=== PATIENT | male | born 1950 | race Caucasian/White ===

== ENCOUNTER → 2016-12-22 | Outpatient (CLI) | payer MEDICARE, OTHER | END | disposition home or self-care (01) | LOC: CFH 09:35 | PROVIDERS: ATTEND Internal Medicine | DX: J98.11 Atelectasis (principal) | CPT/HCPCS: 71020 ==

== ENCOUNTER 2017-01-26 16:58 | Emergency (ER) | payer MEDICARE, OTHER ==
[~2017-01-26] VITALS: Ht 180.3 cm; Wt 153.0 kg
[2017-01-26 17:15] VITALS: BP 122/79
[2017-01-26] MEDS ORDERED: DIPH,PERTUSS(ACELL),TET VAC/PF 0.5 ML IM-VACC ONE ×2 (17:30→17:53)
[2017-01-26] MEDS ORDERED: IBUPROFEN 200 MG TABLET ONE (17:52)
[2017-01-26] MEDS ORDERED: IBUPROFEN 200 MG TABLET PO ONE (18:00)
[2017-01-26 18:14] LABS: BLOOD UREA NITROGEN 27 mg/dL (7-18)
== END 2017-01-26 18:35 | disposition home or self-care (01) ==
LOC: ED 18:29
DX: S50.11XA Contusion of right forearm, initial encounter (principal); W22.8XXA Striking against or struck by other objects, initial encounter; Y93.89 Activity, other specified; Y92.009 Unspecified place in unspecified non-institutional (private) residence as the place of occurrence of the external cause; Y99.9 Unspecified external cause status
CPT/HCPCS: 36415; 80048; 82040; 82550; 90471; 90715

== ENCOUNTER → 2020-06-04 | Outpatient (CLI) | payer MEDICARE, OTHER | END | disposition home or self-care (01) | LOC: RAD 14:13 | PROVIDERS: ATTEND Physician Assistant Medical | DX: N28.1 Cyst of kidney, acquired (principal); Z90.49 Acquired absence of other specified parts of digestive tract; N28.89 Other specified disorders of kidney and ureter; Z20.828 Contact with and (suspected) exposure to other viral communicable diseases | CPT/HCPCS: 76700 ==

== ENCOUNTER → 2020-06-05 | Outpatient (CLI) | payer MEDICARE, OTHER ==
[~2020-06-05] MED LIST: OMNIPAQUE 350 MG/ML, 100ML BOTTLE ONE
[2020-06-05 09:45] LABS: CREATININE 0.96 mg/dL (0.7-1.3)
== END | disposition home or self-care (01) ==
LOC: RAD 08:47
PROVIDERS: ATTEND Physician Assistant Medical
DX: C64.2 Malignant neoplasm of left kidney, except renal pelvis (principal); N28.1 Cyst of kidney, acquired; Z20.828 Contact with and (suspected) exposure to other viral communicable diseases
CPT/HCPCS: 36415; 74170; 82565; Q9967

== ENCOUNTER 2020-06-25 06:18 | Day surgery (SDC) | payer MEDICARE, OTHER ==
[~2020-06-25] VITALS: Ht 180.3 cm; Wt 118.7 kg
[~2020-06-25 06:18] MED LIST changes: +DEXAMETHASONE 4 MG/ML, 1ML ONE; +GABAPENTIN PO; +LIDOCAINE-MPF 1%, 2ML ONE; -OMNIPAQUE 350 MG/ML, 100ML BOTTLE ONE; +ONDA4TAB13 PO; +TAMS-11 PO
[2020-06-25] MEDS ORDERED: TAMS-11 PO (07:17)
[2020-06-25] MEDS ORDERED: GABA-826 PO (07:17)
[2020-06-25 07:18] VITALS: BP 111/76
[2020-06-25] MEDS ORDERED: LACTATED RINGERS 1,000 ML IV SCH (07:30)
[2020-06-25] MEDS ORDERED: CHLORHEXIDINE 15 ML UDC MM ONE (07:30)
[2020-06-25] MEDS ORDERED: FENTANYL PF 250 MCG/5ML ONE (08:21)
[2020-06-25] MEDS ORDERED: LIDOCAINE-MPF 1%, 2ML ONE (08:44)
[2020-06-25] MEDS ORDERED: DEXAMETHASONE 4 MG/ML, 1ML ONE (08:44)
[2020-06-25] MEDS ORDERED: PROPOFOL 50 ML ONE (09:35)
[2020-06-25] MEDS ORDERED: ONDANSETRON 2MG/ML, 2ML ONE (09:35)
[2020-06-25] MEDS ORDERED: SUCCINYLCHOLINE 20 MG/ML, 10ML ONE (09:35)
[2020-06-25] MEDS ORDERED: NEOSTIGMINE 1 MG/ML, 10ML ONE (09:35)
[2020-06-25] MEDS ORDERED: GLYCOPYRROLATE 0.2MG/1ML, 5ML ONE (09:35)
[2020-06-25] MEDS ORDERED: PROPOFOL 10 MG/ML, 20ML ONE (09:35)
[2020-06-25] MEDS ORDERED: CEFAZOLIN 1,000 MG ONE (09:35)
[2020-06-25] MEDS ORDERED: ROCURONIUM 10MG/ML,5ML ONE (09:35)
[2020-06-25] MEDS ORDERED: OMNIPAQUE 350 MG/ML, 50 ML BOTTLE ONE (09:42)
[2020-06-25] MEDS ORDERED: hydrALAzine 20 MG/ML, 1ML IV PRN (10:00)
[2020-06-25] MEDS ORDERED: EPHEDRINE 50 MG/ML, 1ML IVPush PRN (10:00)
[2020-06-25] MEDS ORDERED: FENTANYL PF 100 MCG/2ML IV PRN (10:00)
[2020-06-25] MEDS ORDERED: HYDROmorphone 1 MG/ML, 1ML INJ IVPush PRN (10:00)
[2020-06-25] MEDS ORDERED: METHOCARBAMOL 1,000 MG in DEXTROSE 5% 100 ML IV PRN (10:00)
[2020-06-25] MEDS ORDERED: OXYcodone 5 MG/5 ML ORAL.SOL UDC PO PRN (10:00)
[2020-06-25] MEDS ORDERED: LABETALOL 5MG/ML, 20ML IV PRN (10:00)
[2020-06-25] MEDS ORDERED: MEPERIDINE/PF 25MG/0.5ML IVPush PRN (10:00)
[2020-06-25] MEDS ORDERED: KETOROLAC 30 MG/1 ML IV PRN (10:00)
[2020-06-25] MEDS ORDERED: ACETAMINOPHEN 325 MG TABLET PO PRN (10:00)
[2020-06-25] MEDS ORDERED: ONDANSETRON 2MG/ML, 2ML IVPush PRN (10:00)
[2020-06-25] MEDS ORDERED: PROMETHAZINE 25 MG/ML, 1ML IVPush PRN (10:00)
[2020-06-25] MEDS ORDERED: LORazepam 2 MG/ML, 1ML IVPush PRN (10:00)
[2020-06-25 10:27] LABS: ALANINE AMINOTRANSFERASE 527 U/L (12-78); ALBUMIN 3.3 g/dL (3.4-5.0); ANION GAP 9 mmol/L (5-15); CHLORIDE 110 mmol/L (98-107)
[2020-06-25 10:41] LABS: ALKALINE PHOSPHATASE 1224 U/L (45-117); BILIRUBIN,TOTAL 8.5 mg/dL (0.2-1.0); TOTAL PROTEIN 7.1 g/dL (6.4-8.2)
[2020-06-25] MEDS ORDERED: OMNIPAQUE 350 MG/ML, 100ML BOTTLE ONE (10:58)
== END 2020-06-25 12:00 | disposition home or self-care (01) ==
LOC: OUT 06:18
PROVIDERS: ATTEND Internal Medicine Gastroenterology
DX: K83.1 Obstruction of bile duct (principal); C25.0 Malignant neoplasm of head of pancreas; K44.9 Diaphragmatic hernia without obstruction or gangrene; K31.89 Other diseases of stomach and duodenum; Z20.828 Contact with and (suspected) exposure to other viral communicable diseases; Z79.899 Other long term (current) drug therapy
CPT/HCPCS: 36415; 43239; 43242; 43274; 74170; 74328; 80053; 87635; 88172; 88173; 88305; 88307; C1894; C2625; J0330; J0690; J1100; J2405; J2704; J2710; J3010; J7120; Q9967

== ENCOUNTER 2020-06-29 10:22 | Emergency (ER) | payer MEDICARE, OTHER ==
[~2020-06-29] VITALS: Ht 180.3 cm; Wt 118.3 kg
[~2020-06-29 10:22] MED LIST changes: -DEXAMETHASONE 4 MG/ML, 1ML ONE; +GABA-826 PO; -LIDOCAINE-MPF 1%, 2ML ONE
--- NOTE | 2020-06-29 10:55 | NUR ---
DR. HINOJOSA AND JENIFER HIRSCH AT BEDSIDE. PT C/O COMPLAINING OF INABILITY TO EAT FOLLOWING PANCREATIC STENT PLACEMENT 06/25. PT. STATES HE WAS TOLD BY DR. SILVER TO COME TO THE ED. CONNECTED TO MONITORS. ACCOMPANIED BY . VSS. ORTIZ. PT. STATES NO NEEDS AT THIS TIME
--- NOTE | 2020-06-29 11:27 | NUR ---
LAB AT BEDSIDE. UNABLE TO OBTAIN LABS. WILL REATTEMPT
--- NOTE | 2020-06-29 11:29 | NUR ---
PT. RESTING ON GURNEY. AT BEDSIDE. UPDATED ON POC. VSS. NAD.
--- NOTE | 2020-06-29 12:01 | NUR ---
PT BACK IN ROOM FOLLOWING ESOPHAGRAM. LAB CONTACTED FOR 2ND ATTEMPT
--- NOTE | 2020-06-29 12:06 | NUR ---
LAB AT BEDSIDE
[2020-06-29 12:19] LABS: BASOPHILS % (AUTO) 1 % (0-1); EOSINOPHILS % (AUTO) 4 % (1-7); LYMPHOCYTES % (AUTO) 7 % (22-44); MEAN CORPUSCULAR HEMOGLOBIN 29.2 pg (27.5-34.5); MEAN PLATELET VOLUME 11.9 fL (7.4-10.4); MONOCYTES % (AUTO) 9 % (2-9); NEUTROPHILS % (AUTO) 80 % (42-75); PLATELET COUNT 171 x10^3/uL (130-400); RED BLOOD COUNT 4.15 x10^6/uL (4.38-5.82)
[2020-06-29 12:25] LABS: MD NO
--- NOTE | 2020-06-29 12:26 | NUR ---
PT RESTING ON GURNEY. AWAITING LAB AND ESOPHAGRAM RESULTS. VSS. NAD. WILL CONTINUE TO MONITOR
[2020-06-29 12:32] LABS: ALANINE AMINOTRANSFERASE 177 U/L (12-78); ALBUMIN 3.1 g/dL (3.4-5.0); ANION GAP 6 mmol/L (5-15); CHLORIDE 107 mmol/L (98-107); CREATININE 0.84 mg/dL (0.7-1.3)
[2020-06-29 12:35] LABS: ALKALINE PHOSPHATASE 688 U/L (45-117); BILIRUBIN,TOTAL 3.8 mg/dL (0.2-1.0); TOTAL PROTEIN 7.1 g/dL (6.4-8.2)
[2020-06-29] MEDS ORDERED: MAALOX/HYOSCYAMINE/LIDOCAINE 45 ML BTL PO ONE (13:00)
[2020-06-29] MEDS ORDERED: MAALOX/HYOSCYAMINE/LIDOCAINE 45 ML BTL ONE (13:34)
[2020-06-29 13:36] VITALS: BP 132/78
--- NOTE | 2020-06-29 13:36 | NUR ---
RECEIVED REPORT FROM GREG. PT UPRIGHT ON GURNEY AWAKE & COMFORTABLE AT REST, RESPONDS APPROP TO STAFF, NAD, NO NEEDS AT THIS TIME, AT BS, CALL LIGHT WITHIN REACH, DR HINOJOSA AT BS TO UPDATE PT ON POC.
== END 2020-06-29 14:43 | disposition home or self-care (01) ==
LOC: ED 12:35
DX: K29.00 Acute gastritis without bleeding (principal); C25.9 Malignant neoplasm of pancreas, unspecified; Z90.49 Acquired absence of other specified parts of digestive tract
CPT/HCPCS: 36415; 74220; 80053; 83690; 85025; 99285

== ENCOUNTER → 2020-07-14 | Outpatient (CLI) | payer MEDICARE, OTHER | END | disposition home or self-care (01) | LOC: PETCFH 08:33 | PROVIDERS: ATTEND Surgery | DX: C25.0 Malignant neoplasm of head of pancreas (principal); K57.30 Diverticulosis of large intestine without perforation or abscess without bleeding; I25.10 Atherosclerotic heart disease of native coronary artery without angina pectoris; E04.1 Nontoxic single thyroid nodule; N28.89 Other specified disorders of kidney and ureter | CPT/HCPCS: 78815; A9552 ==

== ENCOUNTER → 2020-07-15 | Outpatient (CLI) | payer MEDICARE, OTHER ==
[~2020-07-15] MED LIST changes: +OMNIPAQUE 350 MG/ML, 100ML BOTTLE ONE
== END | disposition home or self-care (01) ==
LOC: RAD 10:48
PROVIDERS: ATTEND Surgery
DX: C25.0 Malignant neoplasm of head of pancreas (principal); K86.89 Other specified diseases of pancreas
CPT/HCPCS: 74170; Q9967

== ENCOUNTER 2020-07-24 13:35 | Outpatient (CLI) | payer MEDICARE, OTHER ==
[~2020-07-24 13:35] MED LIST changes: -OMNIPAQUE 350 MG/ML, 100ML BOTTLE ONE
[2020-07-24] MEDS ORDERED: OXYC5TAB2 PO (14:18)
== END 2020-07-24 23:59 | disposition home or self-care (01) ==
LOC: STAR 13:35
PROVIDERS: ATTEND Surgery
DX: Z20.828 Contact with and (suspected) exposure to other viral communicable diseases (principal); C78.89 Secondary malignant neoplasm of other digestive organs
CPT/HCPCS: 87635

== ENCOUNTER 2020-07-29 07:50 | Day surgery (SDC) | payer MEDICARE, OTHER ==
[~2020-07-29] VITALS: Ht 172.7 cm; Wt 118.0 kg
[~2020-07-29 07:50] MED LIST changes: +BUPIVACAINE/PF 0.5% ONE; +EPINEPHRINE 1 MG/ML, 1ML ONE; +HEPARIN 1,000 UNITS/ML, 10ML ONE; +HEPARIN 5,000 UNITS/ML, 1ML ONE; +LIDOCAINE/PF 1%, 30ML ONE; +OXYC5TAB2 PO
[2020-07-29 08:24] VITALS: BP 135/89
[2020-07-29] MEDS ORDERED: CHLORHEXIDINE 15 ML UDC ONE (08:28)
[2020-07-29] MEDS ORDERED: CHLORHEXIDINE 15 ML UDC MM ONE (08:30)
[2020-07-29] MEDS ORDERED: LACTATED RINGERS 1,000 ML IV SCH (08:30)
[2020-07-29 09:04] LABS: ALANINE AMINOTRANSFERASE 22 U/L (12-78); ALBUMIN 3.5 g/dL (3.4-5.0); ANION GAP 8 mmol/L (5-15); CALCIUM 9.1 mg/dL (8.5-10.1); CHLORIDE 113 mmol/L (98-107); CREATININE 0.85 mg/dL (0.7-1.3)
[2020-07-29 09:06] LABS: ALKALINE PHOSPHATASE 105 U/L (45-117); TOTAL PROTEIN 6.7 g/dL (6.4-8.2)
[2020-07-29 09:09] LABS: BASOPHILS % (AUTO) 1 % (0-1); EOSINOPHILS % (AUTO) 6 % (1-7); LYMPHOCYTES % (AUTO) 15 % (22-44); MEAN CORPUSCULAR HEMOGLOBIN 29.7 pg (27.5-34.5); MEAN CORPUSCULAR HGB CONC 33.7 g/dL (33.2-36.2); MEAN PLATELET VOLUME 10.9 fL (7.4-10.4); MONOCYTES % (AUTO) 9 % (2-9); NEUTROPHILS % (AUTO) 69 % (42-75); PLATELET COUNT 137 x10^3/uL (130-400); RED BLOOD COUNT 4.54 x10^6/uL (4.38-5.82); RED CELL DISTRIBUTION WIDTH 14.7 % (9.4-14.8)
[2020-07-29 09:14] LABS: MD NO
[2020-07-29] MEDS ORDERED: FENTANYL PF 250 MCG/5ML ONE (10:39)
[2020-07-29] MEDS ORDERED: CEFAZOLIN 1,000 MG ONE ×2 (10:42)
[2020-07-29] MEDS ORDERED: PROPOFOL 10 MG/ML, 20ML ONE (10:42)
[2020-07-29] MEDS ORDERED: EPHEDRINE 50 MG/ML, 1ML ONE ×2 (10:54→11:14)
[2020-07-29] MEDS ORDERED: GLYCOPYRROLATE 0.2MG/1ML, 5ML ONE (10:54)
[2020-07-29] MEDS ORDERED: PHENYLEPHRINE 10 MG/ML ONE (10:54)
[2020-07-29] MEDS ORDERED: ONDANSETRON 2MG/ML, 2ML IVPush PRN (11:00)
[2020-07-29] MEDS ORDERED: LABETALOL 5MG/ML, 20ML IV PRN (11:00)
[2020-07-29] MEDS ORDERED: hydrALAzine 20 MG/ML, 1ML IV PRN (11:00)
[2020-07-29] MEDS ORDERED: FENTANYL PF 100 MCG/2ML IV PRN (11:00)
[2020-07-29] MEDS ORDERED: MEPERIDINE/PF 25MG/0.5ML IVPush PRN (11:00)
[2020-07-29] MEDS ORDERED: HYDROmorphone 1 MG/ML, 1ML INJ IVPush PRN (11:00)
[2020-07-29] MEDS ORDERED: morphine SULFATE 10 MG/ML, 1ML IVPush PRN (11:00)
[2020-07-29] MEDS ORDERED: OXYcodone 5 MG/5 ML ORAL.SOL UDC PO PRN (11:00)
== END 2020-07-29 12:50 | disposition home or self-care (01) ==
LOC: OUT 07:50
PROVIDERS: ATTEND Surgery
DX: C25.0 Malignant neoplasm of head of pancreas (principal); K83.1 Obstruction of bile duct; Z79.891 Long term (current) use of opiate analgesic; Z79.899 Other long term (current) drug therapy
CPT/HCPCS: 36415; 36561; 77001; 80053; 85025; 86301; C1788; J0171; J0690; J1644; J2370; J2704; J3010; J7120; 76000

== ENCOUNTER 2020-08-17 10:25 | Emergency (ER) | payer MEDICARE, OTHER ==
[~2020-08-17] VITALS: Ht 172.7 cm; Wt 115.0 kg
[~2020-08-17 10:25] MED LIST changes: -BUPIVACAINE/PF 0.5% ONE; -EPINEPHRINE 1 MG/ML, 1ML ONE; -HEPARIN 1,000 UNITS/ML, 10ML ONE; -HEPARIN 5,000 UNITS/ML, 1ML ONE; -LIDOCAINE/PF 1%, 30ML ONE
[2020-08-17] MEDS ORDERED: CREON PO (10:39)
[2020-08-17] MEDS ORDERED: ONDA4TAB7 PO (10:39)
--- NOTE | 2020-08-17 10:39 | NUR ---
TASK RN NOTE: BIB [facility] FOR DECREASE IN FOOD INTAKE X3 DAYS, DECREASE IN URINE AND BOWEL MOVEMENTS X3 DAYS. "IT HOLGUIN WHEN I PEE AND IT ONLY DRIBBLES." LAST BM TODAY, BUT PT REPORTS SMALL. CURRENT DX OF PANCREATIC CA. PT RECIEVES CHEMO EVERY TWO WEEKS, TOMORROW WILL BE HIS SECOND TREATMENT. PT CHANGED INTO GOWN, NAD NOTED AT THIS TIME. BP AND SPO2 MONITORING IN PLACE. AT BEDSIDE. SIDE RAIL UP, CALL LIGHT IN REACH. REPORT TO ALIDA MCGOVERN.
--- NOTE | 2020-08-17 11:21 | NUR ---
C/O BURNING W/ URINATION, VOIDING SMALL AMOUNTS X 2 DAYS. AVERAGE WATER INTAKE. PT REPORTS DIARRHEA FOR "ABOUT 3 WEEKS", HAS BEEN TAKING IMMODIUM (LAST DOSE YESTERDAY). LAST CHEMO TX "2 WEEKS AGO TOMORROW", NEXT APPT IS TOMORROW. REPORTS PAIN IN PANCREASE AREA; PAIN W/ BM'S. SPOUSE IN ROOM AND ASSISTING W/ HX. PT NOTIFIED OF NEED FOR URINE SPECIMEN.
[2020-08-17] MEDS ORDERED: LOPE-114 PO (11:29)
--- NOTE | 2020-08-17 11:29 | NUR ---
TO RADIOLOGY PER MARLENI
--- NOTE | 2020-08-17 11:47 | NUR ---
BLADDER SCANNER TO ROOM. PT STATES URGE TO VOID. URINAL IN PT'S HAND
--- NOTE | 2020-08-17 12:02 | NUR ---
PT VOIDED 30ML CLOUDY NURIA URINE. BLADDER SCANNED POST-VOID: NO URINE DETECTED W/ MULTIPLE SCANS.
[2020-08-17] MEDS ORDERED: PROC10TA2 PO (12:14)
[2020-08-17] MEDS ORDERED: LIDO30CR TP (12:14)
[2020-08-17] MEDS ORDERED: ONDA8TAB18 PO (12:14)
[2020-08-17] MEDS ORDERED: LIPA1CAP61 PO (12:14)
[2020-08-17 12:33] LABS: MICROSCOPIC INDICATED
--- NOTE | 2020-08-17 13:12 | NUR ---
RESTING QUIETLY ON GURNEY, AWAITING DETERMINATION AND POC. SPOUSE IN ROOM. PT REPORTS HE VOIDED AGAIN: 40ML NURIA URINE IN URINAL.
[2020-08-17 14:00] VITALS: BP 107/59
[2020-08-17] MEDS ORDERED: CEFTRIAXONE 1,000 MG IM ONE (14:00)
[2020-08-17] MEDS ORDERED: MAGNESIUM CITRATE 300ML ORAL SOL PO ONE (14:00)
[2020-08-17] MEDS ORDERED: CEFTRIAXONE 1,000 MG ONE (14:14)
[2020-08-17] MEDS ORDERED: LIDOCAINE-MPF 1%, 2ML ONE (14:14)
--- NOTE | 2020-08-17 14:21 | NUR ---
ROCEPHIN GIVEN PER EMAR.
[2020-08-17] MEDS ORDERED: MAGNESIUM CITRATE 300ML ORAL SOL ONE (14:38)
== END 2020-08-17 14:49 | disposition home or self-care (01) ==
LOC: ED 13:02
DX: N30.00 Acute cystitis without hematuria (principal); K59.00 Constipation, unspecified; R33.9 Retention of urine, unspecified; Z85.07 Personal history of malignant neoplasm of pancreas
CPT/HCPCS: 74021; 81001; 87077; 87086; 96372; 99285; J0696; 87186

== ENCOUNTER → 2020-10-12 | Outpatient (CLI) | payer MEDICARE, OTHER ==
[~2020-10-12] MED LIST changes: +CREON PO; +LIDO30CR TP; +LIPA1CAP61 PO; +LOPE-114 PO; +OMNIPAQUE 350 MG/ML, 100ML BOTTLE ONE; +ONDA4TAB7 PO; +ONDA8TAB18 PO; +PROC10TA2 PO
== END | disposition home or self-care (01) ==
LOC: RAD 15:53
PROVIDERS: ATTEND Pathology Hematology
DX: C25.0 Malignant neoplasm of head of pancreas (principal); N28.89 Other specified disorders of kidney and ureter; K86.9 Disease of pancreas, unspecified
CPT/HCPCS: 74178; Q9967

== ENCOUNTER → 2020-11-09 | Outpatient (CLI) | payer MEDICARE, OTHER ==
[~2020-11-09] MED LIST changes: -OMNIPAQUE 350 MG/ML, 100ML BOTTLE ONE
== END | disposition home or self-care (01) ==
LOC: ROC 07:42
PROVIDERS: ATTEND Radiology Radiation Oncology
DX: C25.0 Malignant neoplasm of head of pancreas (principal)
CPT/HCPCS: G0463

== ENCOUNTER → 2020-12-02 | Outpatient (CLI) | payer MEDICARE, OTHER | END | disposition home or self-care (01) | LOC: CVU 15:01 | PROVIDERS: ATTEND Pathology Hematology | DX: C25.0 Malignant neoplasm of head of pancreas (principal); I34.0 Nonrheumatic mitral (valve) insufficiency; R60.0 Localized edema; R63.4 Abnormal weight loss | CPT/HCPCS: 93306; 93356 ==

== ENCOUNTER 2021-01-15 08:39 | Outpatient (CLI) | payer MEDICARE, OTHER | END 2021-01-15 23:59 | disposition home or self-care (01) | LOC: ROC 08:39 | PROVIDERS: ATTEND Radiology Radiation Oncology | DX: Z08 Encounter for follow-up examination after completed treatment for malignant neoplasm (principal); Z85.07 Personal history of malignant neoplasm of pancreas | CPT/HCPCS: G0463 ==

== ENCOUNTER → 2021-01-21 | Outpatient (CLI) | payer MEDICARE, OTHER ==
[~2021-01-21] MED LIST changes: +OMNIPAQUE 350 MG/ML, 100ML BOTTLE ONE
== END | disposition home or self-care (01) ==
LOC: CFH 14:54
PROVIDERS: ATTEND Pathology Hematology
DX: C25.0 Malignant neoplasm of head of pancreas (principal); R18.8 Other ascites; N28.1 Cyst of kidney, acquired; K86.89 Other specified diseases of pancreas
CPT/HCPCS: 74178; Q9967

== ENCOUNTER 2021-03-09 09:37 | Outpatient (CLI) | payer MEDICARE, OTHER ==
[~2021-03-09 09:37] MED LIST changes: -OMNIPAQUE 350 MG/ML, 100ML BOTTLE ONE
[2021-03-09] MEDS ORDERED: LIDOCAINE 1%, 10ML ONE (11:06)
== END 2021-03-09 23:59 | disposition home or self-care (01) ==
LOC: RAD 09:37
PROVIDERS: ATTEND Surgery
DX: R18.8 Other ascites (principal); C25.0 Malignant neoplasm of head of pancreas; Z79.899 Other long term (current) drug therapy; Z20.822 Contact with and (suspected) exposure to COVID-19
CPT/HCPCS: 49083; 88112; 88305; 93005; U0003; U0005; 88341; 88342

== ENCOUNTER 2021-03-16 11:38 | Outpatient (CLI) | payer MEDICARE, OTHER ==
[2021-03-16] MEDS ORDERED: LIDOCAINE 1%, 10ML ONE (11:52)
== END 2021-03-16 23:59 | disposition home or self-care (01) ==
LOC: RAD 11:38
PROVIDERS: ATTEND Pathology Hematology
DX: R18.8 Other ascites (principal); C25.0 Malignant neoplasm of head of pancreas
CPT/HCPCS: 49083

== ENCOUNTER 2021-03-25 09:36 | Outpatient (CLI) | payer MEDICARE, OTHER ==
[2021-03-25] MEDS ORDERED: OMNIPAQUE 350 MG/ML, 100ML BOTTLE ONE (10:37)
== END 2021-03-25 23:59 | disposition home or self-care (01) ==
LOC: RAD 09:36
PROVIDERS: ATTEND Pathology Hematology
DX: C25.0 Malignant neoplasm of head of pancreas (principal); E04.2 Nontoxic multinodular goiter; R16.1 Splenomegaly, not elsewhere classified; R18.8 Other ascites; N28.1 Cyst of kidney, acquired
CPT/HCPCS: 71260; 74177; Q9967

== ENCOUNTER 2021-03-29 13:29 | Outpatient (CLI) | payer MEDICARE, OTHER ==
[2021-03-29] MEDS ORDERED: LIDOCAINE 1%, 10ML ONE (13:45)
== END 2021-03-29 23:59 | disposition home or self-care (01) ==
LOC: RAD 13:29
PROVIDERS: ATTEND Pathology Hematology
DX: C25.0 Malignant neoplasm of head of pancreas (principal)
CPT/HCPCS: 49083